=== PATIENT | male | born 1980 | race Caucasian/White ===

== ENCOUNTER 2019-07-12 04:52 | Emergency (ER) | payer MEDICARE, MEDICAID ==
[~2019-07-12] VITALS: Ht 160 cm; Wt 69.4 kg
[~2019-07-12 04:52] MED LIST: CALC0.253 PO; CALC1CAP28 PO; LEVO100T PO; ONDA4TAB5 PO; VIT D
[2019-07-12] MEDS ORDERED: ONDANSETRON 4 MG/2 ML VIAL IV ONE ×2 (05:15→06:15)
[2019-07-12] MEDS ORDERED: IV NORMAL SALINE 1000 ML BAG IV ONE ×2 (05:15→06:30)
[2019-07-12] MEDS ORDERED: HYDROMORPHONE 1 MG/1 ML DISP.SYRIN IV ONE (05:15)
--- NOTE | 2019-07-12 05:15 | NUR ---
Patient ambulated with stable gait. Patient nonverbal, and patients are providing history and answers upon assessment. According to parents, patient has been n/v since 0200 and has not stopped vomiting. Patient would cough and it would exacerbate his urge to vomit. Respiratory even and unlabored, no cough no sob. No cardiovascular distress noted. Patient in bed at lowest position, sr upx2, call light within reach. Fall precautions implemented per protocol. Both mother and father of patient at bedside accompanying patient.
[2019-07-12] MEDS ORDERED: ONDANSETRON 4 MG/2 ML VIAL ONE ×2 (05:26→06:05)
[2019-07-12] MEDS ORDERED: HYDROMORPHONE 1 MG/1 ML DISP.SYRIN ONE (05:26)
[2019-07-12 05:27] LABS: BASOPHILS # (AUTO) 0.1 K/uL (0.0-8.0); BASOPHILS % (AUTO) 0.4 % (0.0-2.0); EOSINOPHILS % (AUTO) 0.4 % (0.0-7.0); HEMATOCRIT 48.5 % (36.7-47.1); HEMOGLOBIN 17.1 g/dL (12.5-16.3); LYMPHOCYTES # (AUTO) 0.4 K/uL (20.0-40.0); MEAN CORPUSCULAR HGB CONC 35 g/dL (32.5-36.3); MEAN CORPUSCULAR VOLUME 87.8 fL (73.0-96.2); MONOCYTES # (AUTO) 0.7 K/uL (2.0-10.0); MONOCYTES % (AUTO) 5.6 % (0.0-11.0); NEUTROPHILS # (AUTO) 11.7 K/uL (1.8-8.9); NEUTROPHILS % (AUTO) 90.6 % (38.5-71.5); PLATELET COUNT (AUTO) 206 K/uL (152-348); RED BLOOD CELL COUNT(AUTO) 5.53 MIL/uL (4.06-5.63); WHITE BLOOD COUNT (AUTO) 12.9 K/uL (3.6-10.2)
--- NOTE | 2019-07-12 05:28 | NUR ---
Per parents, they stated that the patient does not need any pain management at this moment and is refusing the Dilaudid 1MG. They are more concerned with the n/v. ERMD made aware.
[2019-07-12 05:41] LABS: BILIRUBIN,DIRECT 0.2 mg/dL (0.0-0.2); BILIRUBIN,TOTAL 0.7 mg/dL (0.2-1.0); CREATININE 1.3 mg/dL (0.6-1.3); POTASSIUM 3.8 mmol/L (3.5-5.1); TOTAL PROTEIN, SERUM 7.7 g/dL (6.4-8.2)
--- NOTE | 2019-07-12 05:42 | NUR ---
Patient transported to CT in stable condition.
--- NOTE | 2019-07-12 06:00 | NUR ---
Patient back in room from CT
--- NOTE | 2019-07-12 06:36 | NUR ---
Patient discharged to home in stable conditon. Written and verbal after care instructions given. Patient verbalizes understanding of instructions. Denies any acute distress, no episodes of coughing or vomiting
[2019-07-12 06:39] VITALS: BP 110/62
== END 2019-07-12 06:41 | disposition home or self-care (01) ==
LOC: ER 04:54
DX: K52.9 Noninfective gastroenteritis and colitis, unspecified (principal); Z79.899 Other long term (current) drug therapy
CPT/HCPCS: 71045; 74176; 80048; 80076; 83690; 85025; 85730; 96361; 96374; 96376; 99284; J2405 ×2; 36415; A4663; J1170; J7030

== ENCOUNTER 2021-11-07 06:58 | Emergency (ER) | payer MEDICARE, OTHER ==
--- NOTE | 2021-11-07 07:21 | NUR ---
Pt left w/o being triaged.
== END 2021-11-07 07:21 | disposition left against medical advice (07) ==
LOC: ER 07:04
DX: Z53.21 Procedure and treatment not carried out due to patient leaving prior to being seen by health care provider (principal)